=== PATIENT | male | born 1955 | race Hispanic/Latino ===

== ENCOUNTER → 2025-02-17 | Outpatient (CLI) | payer OTHER ==
[2025-02-17 14:00] LABS: APPEARANCE,URINE CLEAR (CLEAR); GLUCOSE, URINE (UA) 70 mg/dL (NEGATIVE); LEUKOCYTE ESTERASE ,URINE NEGATIVE Leu/uL (NEGATIVE); NITRATE,URINE NEGATIVE (NEGATIVE); OCCULT BLOOD,URINE NEGATIVE (NEGATIVE)
[2025-02-17 14:44] LABS: ADD UA MICROSCOPIC YES
--- NOTE | 2025-02-17 23:41 | HMCSR ---
APPROVED REPORT EXAM: Two-dimensional and M-mode echocardiogram with Doppler and color Doppler. INDICATION ICD: I25.10 Atherosclerotic heart disease of [place] coronary artery without angina pectoris 2D Dimensions RVDd3.9 cmLVEF(%)51.6 (>50%)LVED Vol(simp.)111.0 mL IVSd1.1 (0.7-1.1cm)FS(%)27 %LVES Vol(simp.)61.0 mL LVDd5.5 (3.8-5.6cm)LA (2D)3.7 (1.6-4.0cm)LVEF(%, simp.)45 % PWd1.5 (0.7-1.1cm)Ao Root(2D)3.2 (2.0-3.7cm)LA ESV INDEX (BP)16.02 mL/m2 IVSs1.1 cmLVOT diam2.3 (1.8-2.4cm) LVDs4.0 (2.5-4.0cm) PWs1.5 cm M-Mode Dimensions EPSS1.1 cm LA (MM)4.3 (1.6-4.0cm) Ao Root(MM)3.1 (2.0-3.7cm) Aortic Valve AoV Vmax1.3 m/Walter Peak GR6.9 mmHgLVOT Vmax0.8 m/s AoV VTI0.2 mAo Mean GR4.2 mmHgLVOT VTI0.14 m ADELITA (VMAX)2.60 cm2AVA (VTI) 2.6 cm2 Mitral Valve MV E Vmax51.9 cm/sDECEL Qdpt451 ms MV A Vmax72.2 cm/sP 1/2 T50 ms E/A ratio0.7MVA (PHT)4.4 cm2 TDI E/E' Bqesdh06.4E/E' Iffrwaj68.5 Medial E' Peak V3.16 cm/sLateral E' Peak V3.59 cm/s Pulmonary Valve PV Vmax1.1 m/sPV VTI0.16 mPV Mean GR2.5 mmHg PV Peak GR5.2 mmHgPI End Rere. Anup 134.2 cm/s Left Ventricle The left ventricle is normal size. There is global hypokinesis of the left ventricle. Moderate concen tric left ventricular hypertrophy. Left ventricle systolic function is mildly depressed, estimated LV EF is 45%. Stage I diastolic dysfunction. Right Ventricle The right ventricle is normal size. The right ventricular systolic function is normal. Atria The left atrium size is normal. The right atrium size is normal. Aortic Valve Aortic valve is trileaflet. The leaflets are mildly thickened and calcified. Trace aortic regurgitati on. There is no aortic valvular stenosis. Mitral Valve The mitral valve is normal in structure. Trace mitral regurgitation. There is no mitral valve stenosi s. Tricuspid Valve The tricuspid valve is normal in structure. Trace tricuspid regurgitation. RVSP is normal. Pulmonic Valve Pulmonic valve is not well visualized. Great Vessels The aortic root is normal in size. The IVC is normal in size and collapses >50% with inspiration. Pericardium There is no pericardial effusion. Other Information Quality : Technically difficult study due to body habitus Conclusion The cardiac chambers are normal in size. Moderate concentric left ventricular hypertrophy. There is global hypokinesis of the left ventricle. Left ventricle systolic function is mildly depressed, estimated LVEF is 45%. Stage I diastolic dysfunction. Trace aortic regurgitation. Trace mitral regurgitation. Trace tricuspid regurgitation. PASP is normal. There is no pericardial effusion.
== END | disposition home or self-care (01) ==
LOC: RAH 12:46
PROVIDERS: ATTEND Chiropractor
DX: I35.8 Other nonrheumatic aortic valve disorders (principal); I25.10 Atherosclerotic heart disease of native coronary artery without angina pectoris; E11.9 Type 2 diabetes mellitus without complications
CPT/HCPCS: 81001; 93306